=== PATIENT | female | born 1995 | race Caucasian/White ===

== ENCOUNTER → 2018-06-22 19:05 | Outpatient (CLI) | payer OTHER, SELFPAY ==
[2018-06-22 19:12] LABS: Basophils % 0.5 % (0.1-2.0); Eosinophils # 0.2 K/mm3 (0.0-0.4); Eosinophils % 2.1 % (0.1-12.0); Hemoglobin 14.2 g/dL (12.2-16.2); Lymphocytes # 1.8 K/mm3 (0.7-4.5); Lymphocytes % 21.7 % (10-50); Mean Corpuscular HGB Conc 32.2 g/dL (31.8-35.4); Mean Corpuscular Hemoglobin 28.1 pg (27.0-31.2); Mean Corpuscular Volume 87.2 fl (81-99); Mean Platelet Volume 7.6 fl (7.4-10.4); Monocytes # 0.4 K/mm3 (0.1-1.0); Monocytes % 4.8 % (1.7-9.3); Neutrophils # 5.8 K/mm3 (1.8-7.8); Neutrophils % 70.9 % (37.0-80.0); Platelet Count 293 K/mm3 (142-424); Red Blood Count 5.05 M/mm3 (4.20-5.40); White Blood Count 8.2 K/mm3 (4.8-10.8)
[2018-06-22 20:04] LABS: Alanine Aminotransferase 26 U/L (12-78); Albumin/Globulin Ratio 1.1 (1.1-1.8); Alkaline Phosphatase 99 U/L (46-116); Anion Gap 14.7 mEq/L (5-15); Aspartate Amino Transferase 13 U/L (15-37); Bilirubin,Total 0.2 mg/dL (0.2-1.0); Blood Urea Nitrogen 13 mg/dL (7-18); Calcium 8.7 mg/dL (8.5-10.1); Carbon Dioxide 26 mmol/L (21.0-32.0); Chloride 105 mmol/L (98-107); Chol/HDL Ratio 4.1 (1-3.5); Cholesterol 207 mg/dL (140-200); Creatinine,Serum 0.81 mg/dL (0.55-1.02); Estimated Glomerular Filt Rate 88 ml/min (>60); Free T4 (Free Thyroxine) 1.01 ng/dl (0.76-1.46); GFR (African American) 107 ML/MIN (>60); Globulin 3.8 gm/dl (1.3-3.2); Glucose 84 mg/dL (74-106); HDL Cholesterol 51 mg/dL (29-89); LDL Cholesterol 131 mg/dL (0-130); Potassium 3.7 mmoL/L (3.5-5.1); Sodium 142 mmol/L (136-145); Thyroid Stimulating Hormone 2.78 uIU/ml (0.358-3.740); Total Protein,Serum 7.8 gm/dL (6.4-8.2); Triglycerides 124 mg/dL (30-200); VLDL Cholesterol 25 mg/dL (0-40)
[2018-06-24 14:20] LABS: Vitamin D 25 Hydroxy 14.4 ng/mL (30.0-100.0)
== END ==
PROVIDERS: Visit Provider Nurse Practitioner Family
DX: R11.2 Nausea with vomiting, unspecified (principal); R53.83 Other fatigue
CPT/HCPCS: 80053; 80061; 82652; 84439; 84443; 85025

== ENCOUNTER → 2019-08-26 12:45 | Outpatient (CLI) | payer MEDICAID, SELFPAY ==
--- NOTE | 2019-08-26 12:55 | XR_ITS ---
PROCEDURE: XR CHEST 2V CLINICAL HISTORY: cough COMPARISON: No exams were available for comparison FINDINGS: The cardiomediastinal silhouette and pulmonary vascularity are within normal limits. The lungs are clear without infiltrates, suspicious nodules, or pleural effusions. A small nodular opacity is present in the anterior clear space may be due to granuloma or vessel on end for which stability may be confirmed follow-up. No acute bony abnormalities. IMPRESSION: No acute findings. Dictated by: Jagdish Lazaro MD 08/26/2019 13:15 Electronically signed by Jagdish Lazaro MD in [facility] 08/26/2019 13:15
[2019-08-26 14:15] LABS: Chol/HDL Ratio 4.2 (1-3.5); Cholesterol 204 mg/dL (140-200); HDL Cholesterol 49 mg/dL (29-89); LDL Cholesterol 129 mg/dL (0-130); T4 (Thyroxine) 6.6 ug/dl (4.7-13.3); Thyroid Stimulating Hormone 2.66 uIU/ml (0.358-3.740); Triglycerides 130 mg/dL (30-200); VLDL Cholesterol 26 mg/dL (0-40)
== END ==
LOC: LAB 12:45 → RAD 12:53
PROVIDERS: PCP Nurse Practitioner Family; Visit Provider Nurse Practitioner Family
DX: R05 Cough (principal); E55.9 Vitamin D deficiency, unspecified; Z79.899 Other long term (current) drug therapy
CPT/HCPCS: 36415; 71046; 80061; 82652; 84436; 84443

== ENCOUNTER → 2019-08-28 11:11 | Outpatient (CLI) | payer MEDICAID, SELFPAY ==
--- NOTE | 2019-08-28 11:39 | CT_ITS ---
PROCEDURE: CT ANGIO CHEST CLINCIAL INDICATION: POSSIBLE BLOOD CLOT History of blood clot in leg in June 2019, patient on blood thinners increasing cough lately COMPARISON: No exams were available for comparison TECHNIQUE: IV Contrast: 70ML OPTIRAY 350 Axial images obtained with sagittal and coronal reformats. All CT scans at the facility use one or more dose reduction, viz: automated exposure control, ma/kV adjustment per patient size (including targeted exams where dose is matched to indication, i.e. head), or iterative reconstruction technique. FINDINGS: PULMONARY ARTERIES: No pulmonary embolus evident. AORTA: No acute finding. No thoracic aortic aneurysm or dissection evident LUNGS: The lung garrison are well-expanded and appear clear of infiltrate. PLEURAL SPACES: No significant effusion. No evidence of pneumothorax. HEART: Unremarkable. Normal heart size. No significant pericardial effusion. MEDIASTINAL AND HILAR STRUCTURES: There are calcified left hilar nodes and few calcified subcarinal nodes. BONY STRUCTURES: No acute bony abnormalities apparent. LYMPH NODES: No enlarged lymph nodes evident. UPPER ABDOMEN: Unremarkable. IMPRESSION: No evidence of PE, evidence of old granulomatous disease, no acute chest pathology noted Dictated by: Dr. Josh Parr MD 08/28/2019 12:[address] Josh Parr MD in [facility] 08/28/2019 12:45
== END ==
PROVIDERS: PCP Nurse Practitioner Family; Referring Provider Nurse Practitioner Family; Visit Provider Nurse Practitioner Family
DX: R05 Cough (principal)
CPT/HCPCS: 71275; Q9967

== ENCOUNTER 2021-07-03 12:31 | Emergency (ER) | payer MEDICAID, SELFPAY ==
[2021-07-03 12:37] VITALS: BP 0/0; PULSE 0; RESP 0; TEMP -17.7; TEMP 0
== END 2021-07-03 12:37 | disposition left against medical advice (07) ==
LOC: UTC 12:33
PROVIDERS: Emergency Provider Nurse Practitioner Family; PCP Nurse Practitioner
DX: Z53.21 Procedure and treatment not carried out due to patient leaving prior to being seen by health care provider (principal)

== ENCOUNTER 2022-05-15 09:36 | Outpatient (RCR) | payer MEDICAID, SELFPAY | END 2022-07-04 13:49 | disposition home or self-care (01) | LOC: PT.CARL 09:36 | PROVIDERS: PCP Nurse Practitioner; Visit Provider Nurse Practitioner Family | DX: O26.899 Other specified pregnancy related conditions, unspecified trimester (principal); M54.50 Low back pain, unspecified | CPT/HCPCS: 97163 ==

== ENCOUNTER 2022-05-20 09:48 | Emergency (ER) | payer MEDICAID, SELFPAY ==
[2022-05-20 10:50] VITALS: BP 148/73; PULSE 111; RESP 20; TEMP 37.1; O2SAT 96; BMI 44.4
--- NOTE | 2022-05-20 10:55 | EXP.UTC ---
Discharge Plan Disposition Patient Disposition: Home, Self-Care Condition: Good Prescriptions Prescriptions: New azithromycin [Zithromax] 250 mg tablet 250 mg PO UD DOSE PK Qty: 6 0RF Rx Instructions: Take two (2) tablets today, then one (1) tablet days #2 thru #5 No Action bupropion HCl 75 mg tablet 75 mg PO HS 14 Days Qty: 14 0RF Rx Instructions: take at bedtime [id number] [Fioricet] 50-300-40 mg capsule 1 cap PO Q8H PRN (Reason: pain) Qty: 14 0RF loratadine [Claritin] 10 mg tablet 10 mg PO DAILY 30 Days Qty: 30 0RF topiramate [Topamax] 50 mg tablet 50 mg PO QDAY Qty: 30 2RF ergocalciferol (vitamin D2) 1,250 mcg (50,000 unit) capsule 50,000 unit PO QWEEK Qty: 7 0RF Referrals Follow up/Referrals: Aviva Engel APRN [Primary Care Provider] - See instructions Activity Restrictions/Add. Instructions Additional Instructions/Restrictions: Drink plenty of fluids. Take tylenol or ibuprofen for pain or fever. Take the medications as directed. Follow up with your regular doctor. GO TO THE ER FOR ANY WORSENING SYMPTOMS Clinical Impressions Clinical Impression: Sinusitis, Viral syndrome Stand Alone Forms Stand Alone Forms: Work/School Release Instructions Patient Instructions: DI for Viral Syndrome Discharge ED Provider: Satinder Osuna [facility] General Stated complaint: congestion, cough, sore throat Time Seen by Provider: 05/20/22 10:55 History of Present Illness Provider Complaint: She states that for the past 2 days she has had fever, chills, sore throat, and sinus congestion. Related Data Previous Rx's Medication Instructions Recorded ergocalciferol (vitamin D2) 1,250 50,000 unit PO QWEEK #7 caps 09/04/ mcg (50,000 unit) capsule bupropion HCl 75 mg tablet 75 mg PO HS 2 weeks #14 tabs 08/03/20 [id number]-[id number] 1 cap PO Q8H PRN pain #14 caps 08/03/20 50 mg-300 mg-40 mg capsule (Fioricet) loratadine 10 mg tablet (Claritin) 10 mg PO DAILY 30 days #30 tabs 08/03/20 topiramate 50 mg tablet (Topamax) 50 mg PO QDAY #30 tabs 08/03/20 azithromycin 250 mg tablet 250 mg PO UD DOSE PK #6 tabs 05/20/22 (Zithromax) Allergies Allergy/AdvReac Type Severity Reaction Status Date / Time triamcinolone [TRIAMCINOLONE] Allergy Unknown Verified 08/03/20 10:41 PFSH PFS Medical History Anxiety Asthma Depression Migraine Social History Smoking Status: Never smoker alcohol intake: never substance use type: denies use current occupational status: employed Travel in the last 8 weeks: None household members: family housing: house number of children: 1 caffeine: No ROS Obtained: Yes All systems reviewed & no additional complaints except as documented Constitutional Constitutional: Reports chills and Reports fever(s) Eyes Eyes: Denies eye discharge ENT Ears, Nose, Mouth, and Throat: Reports as per HPI Cardiovascular Cardiovascular: Denies chest pain Respiratory Respiratory: Denies chest congestion and Reports cough Gastrointestinal Gastrointestingal: Reports nausea; Denies abdominal pain, constipation, cramping, diarrhea or vomiting Musculoskeletal Musculoskeletal: Denies arthralgias Integumentary/Breasts Skin/Breast: Denies rash Neurologic Neurologic: Denies paresthesias Physical Exam General General appearance: alert and in no apparent distress Head Head exam: atraumatic, normocephalic and normal inspection Eye Eye exam: Present normal appearance, PERRL and EOMI ENT ENT exam: Present normal exam, normal oropharynx, mucous membranes moist, TM's normal bilaterally and normal external ear exam Neck Neck exam: Present normal inspection, full ROM and trachea midline; Absent meningismus or lymphadenopathy Chest Chest inspection: Present normal inspection and symmetric chest w
[2022-05-20 11:27] LABS: UTC Influenza A Antigen Negative (Negative)
[2022-05-20 11:28] LABS: UTC Influenza B Antigen Negative (Negative)
[2022-05-20 11:34] VITALS: BP 148/73; PULSE 111; RESP 20; TEMP 37.1; O2SAT 96
[2022-05-20 11:44] LABS: Adenovirus,PCR Not Detected (NotDetected); Bordetella Pertussis Not Detected (NotDetected); Chlamydophila Pneumoniae, PCR Not Detected (NotDetected); Coronavirus 19, PCR Not Detected (NotDetected); Coronavirus 229E Not Detected (NotDetected); Coronavirus NL63 Not Detected (NotDetected); Coronavirus OC43 Not Detected (NotDetected); Coronovirus HKU1,PCR Not Detected (NotDetected); Human Metapneumovirus Not Detected (NotDetected); Influenza A, PCR Not Detected (NotDetected); Influenza AH1, 2009 Not Detected (NotDetected); Influenza AH1, PCR Not Detected (NotDetected); Influenza AH3,PCR Not Detected (NotDetected); Influenza B, PCR Not Detected (NotDetected); Mycoplasma Pneumoniae, PCR Not Detected (NotDetected); Parainfluenza 1, PCR Not Detected (NotDetected); Parainfluenza 2, PCR Not Detected (NotDetected); Parainfluenza 3, PCR Not Detected (NotDetected); Respiratory Syncytial Virus Not Detected (NotDetected); Rhinovirus/Enterovirus Not Detected (NotDetected)
[2022-05-20 14:29] LABS: Parainfluenza 4, PCR Detected (NotDetected)
[2022-05-21 19:26] LABS: UTC Strep Screen (Rapid) Negative (Negative)
== END 2022-05-20 11:37 | disposition home or self-care (01) ==
PROVIDERS: Emergency Provider Nurse Practitioner Family; PCP Nurse Practitioner
DX: J02.9 Acute pharyngitis, unspecified (principal); B34.8 Other viral infections of unspecified site; R50.9 Fever, unspecified; R09.81 Nasal congestion; R05.9 Cough, unspecified; Z20.822 Contact with and (suspected) exposure to COVID-19; G43.909 Migraine, unspecified, not intractable, without status migrainosus; J45.909 Unspecified asthma, uncomplicated; F32.A Depression, unspecified; F41.9 Anxiety disorder, unspecified; Z79.899 Other long term (current) drug therapy; Z88.8 Allergy status to other drugs, medicaments and biological substances
CPT/HCPCS: 87581; 87632; 87798; 87804; 87880; 99213; C9803; G0463; U0003; U0005